=== PATIENT | female | born 1990 | race Caucasian/White ===

== ENCOUNTER 2017-03-24 19:51 | Emergency (ER) | payer OTHER ==
[~2017-03-24] VITALS: Ht 160 cm; Wt 63.5 kg
--- NOTE | ~2017-03-24 | EKG ---
[place] [address] [facility] [place] [address] ELECTROCARDIOGRAM REPORT Name: DORIS STOVALL [facility]: [facility] [id number] Admission: 03/24/17 Attend Phys: Discharge: 03/24/17 Date of : [birth year] Report #: [id number] THIS REPORT FOR: //name// [facility] ED Test Date: 2017-03-24 Test Time: 19:56:57 Pat Name: DORIS STOVALL Department: Room: Gender: F Warehouse Specialist: Andres PITT : 1990 Requested By: Blaine Hawk Order Number: [id number] MD: Elbert Womack Measurements Intervals [place] Rate: 102 P: 65 DE: 144 QRS: 19 QRSD: 91 T: -34 QT: 345 QTc: 450 Interpretive Statements Sinus tachycardia Borderline T abnormalities, diffuse leads No previous ECG available for comparison Electronically Signed On 03-25-2017 8:32:39 CDT by Elbert Womack [email or web address] <ELECTRONICALLY SIGNED> By: Elbert Womack MD, [facility] 03/25/17 0832 [id number] 55 Elbert Womack MD, FACC /EPI
[~2017-03-24 19:51] MED LIST: NORCO 7.5-3251 EACH PO; PROVENTIL
[2017-03-24] MEDS ORDERED: ZYRTEC10 M2 PO (20:43)
[2017-03-24] MEDS ORDERED: XANAX 0.5 MG0.5 M1 PO (20:43)
[2017-03-24] MEDS ORDERED: PEPCID40 MG PO (22:09)
[2017-03-24 22:22] VITALS: BP 109/80
== END 2017-03-24 22:23 | disposition home or self-care (01) ==
LOC: ER 19:51
DX: K20.9 Esophagitis, unspecified (principal); J45.909 Unspecified asthma, uncomplicated; F41.0 Panic disorder [episodic paroxysmal anxiety]; F17.210 Nicotine dependence, cigarettes, uncomplicated